=== PATIENT | male | born 1970 | race Caucasian/White ===

== ENCOUNTER 2019-01-07 20:17 | Emergency (ER) | payer BC ==
[~2019-01-07] VITALS: Ht 175.3 cm; Wt 81.8 kg
[2019-01-07] MEDS ORDERED: ZANT150T40 PO (20:32)
[2019-01-07] MEDS ORDERED: OMEP20CA4 PO (20:49)
[2019-01-07 21:15] LABS: BASO # 0.1 10^3/uL (0.0-0.2); BASO % 0.5 % (0.0-1.0); EOS % 0.3 % (0.0-3.0); HEMATOCRIT 46.5 % (42.0-52.0); HEMOGLOBIN 16.3 g/dl (13.5-17.5); LYMPH # 0.9 10^3/uL (1.5-4.5); LYMPH % 8.1 % (24.0-44.0); MEAN CORPUSCULAR HEMOGLOBIN 29.9 pg (27.0-33.0); MEAN CORPUSCULAR HGB CONC 35.1 g/dl (32.0-36.5); MEAN CORPUSCULAR VOLUME 85.3 fl (80.0-96.0); MONO # 0.3 10^3/uL (0.0-0.8); MONO % 2.9 % (0.0-5.0); NEUTROPHILS % 87.8 % (36.0-66.0); PLATELET COUNT, AUTOMATED 232 10^3/uL (150-450); RED BLOOD COUNT 5.45 10^6/uL (4.30-6.10); WHITE BLOOD COUNT 11.4 10^3/uL (4.0-10.0)
[2019-01-07 21:42] LABS: ALT/SGPT 29 U/L (12-78); BILIRUBIN,DIRECT 0.2 MG/DL (0.0-0.2); BILIRUBIN,TOTAL 0.5 MG/DL (0.2-1.0); BLOOD UREA NITROGEN 13 MG/DL (7-18); CALCIUM LEVEL 9.2 MG/DL (8.5-10.1); CARBON DIOXIDE LEVEL 29 MEQ/L (21-32); CHLORIDE LEVEL 104 MEQ/L (98-107); CREATININE FOR GFR 0.97 MG/DL (0.70-1.30); GLOMERULAR FILTRATION RATE > 60.0 (>60); GLUCOSE, FASTING 116 MG/DL (70-100); LIPASE 190 U/L (73-393); POTASSIUM SERUM 4.8 MEQ/L (3.5-5.1); SODIUM LEVEL 140 MEQ/L (136-145)
[2019-01-07] MEDS ORDERED: NS 1,000 ML IV ONE (22:15)
[2019-01-07] MEDS ORDERED: MECLIZINE 25 MG TABLET PO ONE (22:15)
[2019-01-07] MEDS ORDERED: MECL-68 PO (23:49)
[2019-01-08] VITALS: BP 115/74
--- NOTE | 2019-01-08 00:23 | REPVR ---
EXAM: CT Head Without Contrast EXAM DATE/TIME: 01/07/2019 11:22 PM CLINICAL HISTORY: 48 years old, male; Dizziness; Additional info: Dizzy TECHNIQUE: Imaging protocol: Computed tomography images of the head without contrast. Radiation optimization: All CT scans at this facility use at least one of these dose optimization techniques: automated exposure control; mA and/or kV adjustment per patient size (includes targeted exams where dose is matched to clinical indication); or iterative reconstruction. COMPARISON: No relevant prior studies available. FINDINGS: Brain: No acute intracranial hemorrhage or mass effect. No discrete geographic area of hypoattenuation to suggest large vessel territorial infarct identified at this time. Tortuous left internal carotid artery seen adjacent to the pituitary fossa. Ventricles: No ventriculomegaly. Bones/joints: No acute fracture. Sinuses: Scattered ethmoidal sinus mucosal thickening. Mastoid air cells: Visualized mastoid air cells are well aerated. No mastoid effusion. Soft tissues: Unremarkable. IMPRESSION: No acute intracranial hemorrhage or evidence to suggest large vessel territorial infarction. Electronically signed by: Darek Rangel On 01/08/2019 00:22:29 AM
== END 2019-01-08 00:39 | disposition home or self-care (01) ==
LOC: M ED 20:17
DX: H83.09 Labyrinthitis, unspecified ear (principal); R11.2 Nausea with vomiting, unspecified; Z79.899 Other long term (current) drug therapy